=== PATIENT | male | born 1985 | race Caucasian/White ===

== ENCOUNTER 2024-09-13 09:05 | Emergency (ER) | payer MEDICAID, OTHER ==
[~2024-09-13] VITALS: Ht 180.3 cm; Wt 102.0 kg
[2024-09-13 09:17] VITALS: TEMP 36.6; O2SAT 100
[2024-09-13] MEDS: IBUPROFEN 600MG TABLET PO STA (11:05)
[2024-09-13 12:09] LABS: CHLORIDE 105 mEq/L (98-107); SODIUM 140 mEq/L (136-145)
[2024-09-13 12:10] LABS: CARBON DIOXIDE 25 mEq/L (21-32)
[2024-09-13 12:11] LABS: CALCIUM 9.9 mg/dL (8.7-10.4)
[2024-09-13 12:15] LABS: CREATININE 0.7 mg/dL (0.6-1.3); GLUCOSE 118 mg/dL (70-105)
[2024-09-13 12:16] LABS: UREA NITROGEN BLOOD 10 mg/dL (9-23)
[2024-09-13 12:22] LABS: BASOPHILS % 0.4 % (0.0-2.0); EOSINOPHILS % 3.5 % (0.0-5.0); HEMATOCRIT. 42.7 % (42.0-52.0); HEMOGLOBIN. 14.2 g/dL (14.0-18.0); LYMPHOCYTES % 20.7 % (20.0-50.0); MEAN CORPUSCULAR HEMOGLOBIN 29.3 pg (28.0-32.0); MEAN CORPUSCULAR HGB CONC 33.2 g/dL (31.0-37.0); MEAN CORPUSCULAR VOLUME 88.4 fL (80.0-94.0); MEAN PLATELET VOLUME 9.9 fl (7.4-10.4); MONOCYTES % 5.5 % (2.0-8.0); NEUTROPHILS % 69.9 % (40.0-76.0); PLATELET 211 x1000/uL (130-400); RED BLOOD CELL COUNT 4.83 mill/uL (4.7-6.1); RED CELL DISTRIBUTION WIDTH 13.6 % (11.6-14.6); WHITE BLOOD COUNT 8.4 x1000/uL (4.5-11.0)
[2024-09-13 14:13] VITALS: BP 147/79; PULSE 82; RESP 15; O2SAT 98
[2024-09-13] MEDS ORDERED: QUET200T PO (14:17)
[2024-09-13] MEDS ORDERED: TOPI50TA MT (14:17)
== END 2024-09-13 14:20 | disposition home or self-care (01) ==
LOC: ER 09:05
DX: R10.31 Right lower quadrant pain (principal); F31.9 Bipolar disorder, unspecified; G40.909 Epilepsy, unspecified, not intractable, without status epilepticus; F14.91 Cocaine use, unspecified, in remission; F12.90 Cannabis use, unspecified, uncomplicated; F15.90 Other stimulant use, unspecified, uncomplicated; Z79.899 Other long term (current) drug therapy
CPT/HCPCS: 36415; 76700; 80048; 85025; 99284